=== PATIENT | female | born 1970 | race Hispanic/Latino ===

== ENCOUNTER → 2017-11-18 | Outpatient (CLI) | payer BC ==
--- NOTE | 2017-11-18 10:50 | Diagnostic Imaging Report ---
PROCEDURE:SP LUMBAR, COMPLETE MIN 4VW TECHNIQUE:AP, lateral, bilateral oblique and coned down views lumbar spine INDICATION:Lumbar spine pain COMPARISON:None. FINDINGS: 5 [id number]-[id number] lumbar vertebral bodies. Hypoplastic 12th ribs. Vertebral body height is preserved. Trace degenerative changes at L2-L3 with preservation of disc space height. Facets are patent without significant sclerosis or osteophytosis. Regional skeleton is intact. Patent sacroiliac joints. CONCLUSION: Trace degenerative disc disease not unexpected for patient age. No acute abnormality. Dictated by: Star Hassan M.D. on 11/18/2017 at 10:58 Electronically approved by: Star Hassan M.D. on 11/18/2017 at 10:58
== END ==
LOC: RAD 09:39
PROVIDERS: ATTEND Family Medicine
DX: M54.5 Low back pain (principal)
CPT/HCPCS: 72110

== ENCOUNTER → 2018-08-03 | Day surgery (SDC) | payer BC ==
[~2018-08-03] MED LIST: BISOPROLOL FUMAR5 MG PO; CYMBALTA30 MG PO; LASIX20 MG PO; LIDOCAINE HCL 2% LOCAL INJ 5 ML SDV VIAL INJ ONE; OXCARBAZEPINE150 MG PO; PROPOFOL IV EMULSION 10 MG/ML 50 ML VIAL IV ONE
--- OUTSIDE RECORDS SUMMARY | 2018-08-24 07:39 | XMS REPORT ---
Author Author [facility] Address Unknown Phone Unavailable Care Team Providers Care Antenna Design Engineer Name Role Phone ANGEL CAMEJO Unavailable Unavailable PHILIP ROSS Unavailable Unavailable Problems This patient has no known problems. Allergies, Adverse Reactions, Alerts This patient has no known allergies or adverse reactions. Medications This patient has no known medications. Results Test Description Test Time Test Comments Text Results Atomic Results Result Comments SP LUMBAR, COMPLETE MIN 4VW [place] [address] Patient Name: SAKINA BOLAND MR #: [id number] : 1970 Age/Sex: 47/F Req #: [id number] Adm Physician: Ordered by: BASHIR GLASS, ANGEL Naranjo MD Report #: [id number] Location: [facility] Room/Bed: ____ Procedure: [id number] DX/SP LUMBAR, COMPLETE MIN 4VW Exam Date: Exam Time: 1010 REPORT STATUS: Signed PROCEDURE: SP LUMBAR, COMPLETE MIN 4VW TECHNIQUE: AP, lateral, bilateral oblique and coned down views lumbar spine INDICATION: Lumbar spine pain COMPARISON: None. FINDINGS: 5 kmq-mkm-vtbpfom lumbar vertebral bodies. Hypoplastic 12th ribs. Vertebral body height is preserved. Trace degenerative changes at L2-L3 with preservation of disc space height. Facets are patent without significant sclerosis or osteophytosis. Regional skeleton is intact. Patent sacroiliac joints. CONCLUSION: Trace degenerative disc disease not unexpected for patient age. No acute abnormality. Dictated by: Stephanie Hassan M.D. on 11/18/2017 at 10:58 Electronically approved by: Stephanie Hassan M.D. on 2016 at 10:58 Dictated By: STEPHANIE HASSAN MD 1058 Transcribed By: CHRISTA on 1058 COPY TO: ANGEL CAMEJO MAMMOGRAPHY DIGITAL SCR BILAT [place] [address] Patient Name: SAKINA BOLAND MR #: [id number] : 1970 Age/Sex: 47/F Req #: [id number] Adm Physician: Ordered by: JOSE ROSS MD Report #: [id number] Location: MAMMO Room/Bed: Procedure: [id number] MG/MAMMOGRAPHY DIGITAL SCR BILAT Exam Date: Exam Time: 1420 REPORT STATUS: Signed #[id number] - MGSCRBIL #BILATERAL DIGITAL SCREENING MAMMOGRAM WITH CAD : 11/04/2017 CLINICAL: Routine screening. Comparison is made to exams dated: 11/02/2016 mammogram, 10/31/2015 mammogram and 10/09/2014 mammogram - [facility]. Current study contains 4 films. There are scattered fibroglandular elements in both breasts. Current study was also evaluated with a Computer Aided Detection (CAD) system. No significant masses, calcifications, or other findings are seen in either breast. There has been no significant interval change. IMPRESSION: NEGATIVE There is no mammographic evidence of malignancy. A 1 year screening mammogram is recommended. The patient will be notified by letter of the results. Dr. Cora Pace MD rs/brendan:11/16/2017 14:22: 55 Client Coordinator: Karis WASHINGTON(Ramiro)(M), [facility] letter sent: Compared to Prior B9 Mammogram BI-RADS: 1 Negative Dictated By: CORA PACE MD 142 Transcribed By: BRENDAN on 11/16/17 142 COPY TO : PHILIP ROSS MD
== END | disposition home or self-care (01) ==
LOC: OR 07:33
PROVIDERS: ATTEND Internal Medicine Gastroenterology
DX: Z12.11 Encounter for screening for malignant neoplasm of colon (principal); K29.50 Unspecified chronic gastritis without bleeding; K21.0 Gastro-esophageal reflux disease with esophagitis; K57.30 Diverticulosis of large intestine without perforation or abscess without bleeding; K64.8 Other hemorrhoids; K44.9 Diaphragmatic hernia without obstruction or gangrene; B96.81 Helicobacter pylori [H. pylori] as the cause of diseases classified elsewhere; G47.33 Obstructive sleep apnea (adult) (pediatric); I10 Essential (primary) hypertension; Z71.3 Dietary counseling and surveillance; E66.01 Morbid (severe) obesity due to excess calories; Z01.810 Encounter for preprocedural cardiovascular examination; Z68.42 Body mass index [BMI] 45.0-49.9, adult; Z87.891 Personal history of nicotine dependence
CPT/HCPCS: 43239; 45378; 93005; J2001

== ENCOUNTER → 2018-12-13 | Outpatient (CLI) | payer BC ==
[~2018-12-13] MED LIST changes: -LIDOCAINE HCL 2% LOCAL INJ 5 ML SDV VIAL INJ ONE; -PROPOFOL IV EMULSION 10 MG/ML 50 ML VIAL IV ONE
--- NOTE | 2018-12-14 12:24 | Diagnostic Imaging Report ---
#[id number] - MGSCRBIL #BILATERAL DIGITAL SCREENING MAMMOGRAM WITH CAD: 12/13/2018 CLINICAL: Routine screening. Comparison is made to exams dated: 11/04/2017 mammogram and 10/31/2015 mammogram - [facility]. There are scattered fibroglandular elements in both breasts. Current study was also evaluated with a Computer Aided Detection (CAD) system. No significant masses, calcifications, or other findings are seen in either breast. There has been no significant interval change. IMPRESSION: NEGATIVE There is no mammographic evidence of malignancy. A 1 year screening mammogram is recommended. The patient will be notified by letter of the results. Luis Alberto valera/gregoria:12/14/2018 11:14:55 Printer Technician: Karis WASHINGTON(R)(M), [facility] letter sent: Normal Exam Mammogram BI-RADS: 1 Negative
== END ==
LOC: MAMMO 12:41
PROVIDERS: ATTEND Obstetrics & Gynecology
DX: Z12.31 Encounter for screening mammogram for malignant neoplasm of breast (principal)
CPT/HCPCS: 77067

== ENCOUNTER 2020-05-09 13:53 | Observation (INO) | payer BC, OTHER ==
[~2020-05-09] VITALS: Ht 172.7 cm; Wt 151.0 kg
--- NOTE | 2020-05-09 14:09 | Emergency Department Note ---
History of Present Illnes History of Present Illness Chief Complaint: Chest Pain History of Present Illness This is a 50 year old female arrived to the ED with left-sided chest pa in worse on exertion, started and woke up from her sleep at 2 AM. Patient states all the chest pain is improved it is still present. Patient states her PCP told to come the emergency department. Patient's journal clerk is Dr. Green she has not had a cardiac workup done thus far.. Historian: Patient Arrival Mode: Car Onset (how long ago): hour(s) Severity: mild Onset quality: sudden Duration (how long): hour(s) Timing of current episode: intermittent Progression: worsening Context: Denies recent illness Relieving factors: none Associated symptoms: Reports chest pain; Denies denies other symptoms, Denies cough, Denies fever/chills, Denies headaches, Denies loss of appetite Past Medical/Family History Physician Review I have reviewed the patient's past medical and family history. Any updates have been documented here. Past Medical History Recent Fever: No Clinical Suspicion of Infectio: No New/Unexplained Change in Ment: No Past Medical History: Hypertension, Diabetes Other Medical History: NEUROPATHY Past Surgical History: , Hernia Repair Social History Smoking Cessation: Never Smoker Counseling Performed: No Review of Systems Review of Systems Constitutional: Reports no symptoms EENTM: Reports no symptoms Cardiovascular: Reports as per HPI, Reports chest pain; Denies palpitations, Denies syncope Respiratory: Reports no symptoms Gastrointestinal: Reports no symptoms Genitourinary: Reports no symptoms Musculoskeletal: Reports no symptoms Integumentary: Reports no symptoms Neurological: Reports no symptoms Psychological: Reports no symptoms Endocrine: Reports no symptoms Hematological/Lymphatic: Reports no symptoms Physical Exam Related Data Allergies: Coded Allergies: No Known Drug Allergies (Verified Allergy, Unknown, 07/15/10) Triage Vital Signs Vital Signs Date Time Temp Pulse Resp B/P (MAP) Pulse Ox O2 Delivery O2 Flow Rate FiO2 05/09/20 13:57 98.9 73 18 153/75 97 Vital signs reviewed: Yes Physical Exam CONSTITUTIONAL Constitutional: Present well-developed, Present morbidly obese HENT HENT: Present normocephalic, Present atraumatic, Present oropharynx clear/moist, Present nose normal HENT L/R: Present left ext ear normal, Present right ext ear normal EYES Eyes: Reports PERRL, Reports conjunctivae normal NECK Neck: Present ROM normal PULMONARY Pulmonary: Present effort normal, Present breath sounds normal CARDIOVASCULAR Cardiovascular: Present regular rhythm, Present heart sounds normal, Present capillary refill normal, Present normal rate GASTROINTESTINAL Abdominal: Present soft, Present nontender, Present bowel sounds normal GENITOURINARY Genitourinary: Present exam deferred SKIN Skin: Present warm, Present dry MUSCULOSKELETAL Musculoskeletal: Present ROM normal NEUROLOGICAL Neurological: Present alert, Present oriented x 3, Present no gross motor or sensory deficits PSYCHOLOGICAL Psychological: Present mood/affect normal, Present judgement normal Results Laboratory Lab results reviewed: Yes Imaging Imaging results reviewed: Yes Procedures 12 Lead ECG Interpretation ECG Interpretation : ECG: ECG 1 Reverse Unit Operator: Interpreted by ED physician Rhythm: sinus rhythm QRS axis: left Clinical Decision Tools HEART Score Another reason for symptoms: HEART score not applicable HEART Score: HEART Score Response (Comments) Value History Highly suspicious 2 EKG Normal 0 Age 45 - 65 1 Risk factors 3 or more risk factors OR hx of CAD 2 Troponin 1-3x normal limit Total 5 Assessment & Plan Medical Decision Making MDM 50-year-old female high risk chest pain arrived to the ED with chest pain is worse on exertion. Patient noted for serial cardiac markers cariology consulted. Dr. Green informed. Assessment & Plan Final Impression: (1) ACS (acute coronary syndrome) Depart Disposition: ADMITTED Last Vital Signs Date Time Temp Pulse Resp B/P (MAP) Pulse Ox O2 Delivery O2 Flow Rate FiO2 05/09/20 13:57 98.9 73 18 153/75 97 Home Meds Reported Medications Oxcarbazepine (OXCARBAZEPINE) 150 Mg Tablet, 150 MG PO DAILY 07/31/18 Furosemide (LASIX) 20 Mg Tablet, 10 MG PO DAILY, #30 TAB 07/31/18 Duloxetine Hcl (CYMBALTA) 30 Mg Capsule.dr, 30 MG PO DAILY, #30 CAP 07/31/18 Bisoprolol Fumarate (BISOPROLOL FUMARATE) 5 Mg Tablet, 5 MG PO DAILY 07/31/18 CORINA MCCULLOUGH DO May 09, 2020 14:09
[2020-05-09 14:33] LABS: BASOPHILS % 0.4 % (0.0-1.0); EOSINOPHILS # (AUTO) 0.2 (0.0-0.4); EOSINOPHILS % 1.9 % (0.0-6.0); HEMATOCRIT 43.7 % (34.2-44.1); LYMPHOCYTES # (AUTO) 1.9 (1.0-3.2); LYMPHOCYTES % 21.4 % (18.0-39.1); MEAN CORPUSCULAR HEMOGLOBIN 28.5 pg (28-32); MEAN CORPUSCULAR VOLUME 88.8 fL (81-99); MONOCYTES # (AUTO) 0.6 (0.2-0.8); MONOCYTES % 6.9 % (4.4-11.3); NEUTROPHILS # (AUTO) 6.3 (2.1-6.9); NEUTROPHILS % 69.2 % (38.7-80.0); PLATELET COUNT 282 x10e3/uL (140-360); RED BLOOD COUNT 4.92 x10e6/uL (3.6-5.1); RED CELL DISTRIBUTION WIDTH 12.9 % (11.7-14.4)
--- NOTE | 2020-05-09 14:47 | Diagnostic Imaging Report ---
EXAMINATION: CHEST SINGLE (PORTABLE) INDICATION: Chest pain COMPARISON: None FINDINGS: LINES/TUBES:None LUNGS:The lungs are well-inflated. No focal consolidation or pulmonary edema. PLEURA:No pleural effusion or pneumothorax. MEDIASTINUM:The cardiomediastinal silhouette appears normal in size and shape. BONES/SOFT TISSUES:No acute osseous injury. ABDOMEN:No free air under the diaphragm. IMPRESSION: No focal pneumonia or pulmonary edema. Signed by: Lai Eid MD on 05/09/2020 2:44 PM
[2020-05-09] MEDS ORDERED: ASPIRIN 81 MG CHEW TAB PO ONE (16:15)
[2020-05-09 16:22] LABS: ALANINE AMINOTRANSFERASE 40 IU/L (0-55); ALBUMIN 3.7 g/dL (3.5-5.0); ALKALINE PHOSPHATASE 132 IU/L (40-150); ANION GAP 13.9 mmol/L (8-16); BLOOD UREA NITROGEN 12 mg/dL (7-26); BUN/CREATININE RATIO 13 (6-25); CALCIUM 9.5 mg/dL (8.4-10.2); CARBON DIOXIDE 26 mmol/L (22-29); CHLORIDE 101 mmol/L (98-107); CREATINE KINASE 48 IU/L (29-168); EST GLOMERULAR FILTRATION RATE > 60 ML/MIN (60-); POTASSIUM 3.9 mmol/L (3.5-5.1); SODIUM 137 mmol/L (136-145)
[2020-05-09 17:12] LABS: GLUCOSE 145 mg/dL (74-118)
--- NOTE | 2020-05-09 17:20 | NUR ---
RECEIVED PATIENT FROM THE ER, PATIENT IS ALERT AND ORIENTED X3, VERBALIZING NEEDS, AT BED SIDE, ORIENTED TO ROOM AND USE OF CALL LIGHT AND BOOKLET. PATIENT VERBALIZED UNDERSTANDING. BED IN LOW POSITION, BREAKS IN PLACE. CALL LIGHT AND BELONGINGS WITHIN REACH WILL CONTINUE TO MONITOR.
[2020-05-09 18:10] VITALS: BP_SYST 114; BP_SYST 149; BP_DIAS 56; BP_DIAS 79
[2020-05-09] MEDS ORDERED: GLIPIZIDE5 MG PO (18:37)
[2020-05-09] MEDS ORDERED: FUROSEMIDE40 MG PO (18:55)
[2020-05-09] MEDS ORDERED: VITMAIN D PO (18:57)
[2020-05-09] MEDS ORDERED: DEXTROSE 50% SYRINGE 50 ML IV PRN (19:15)
[2020-05-09] MEDS ORDERED: ACETAMINOPHEN 325 MG TAB PO PRN (19:15)
[2020-05-09 20:00] VITALS: BP 110/64
[2020-05-09 20:54] VITALS: BP 110/64
[2020-05-09] MEDS: INSULIN REGULAR, HUMAN 100 UNIT/1 ML 3ML VIAL SQ SCH (21:11)
[2020-05-10] VITALS: BP 110/58
[2020-05-10 01:44] LABS: CREATINE KINASE 39 IU/L (29-168)
[2020-05-10 04:00] VITALS: BP 104/51
--- NOTE | 2020-05-10 06:52 | History and Physical ---
PRIMARY CARE PHYSICIAN: Dr. Sam Pineda. CHIEF COMPLAINT: Chest pain radiating to the left arm. HISTORY OF PRESENT ILLNESS: This is a 50-year-old female with past medical history of hypertension, diabetes, neuropathy, and GERD, presented to the ER with complaints of chest pain that started overnight. She reports the pain initially started before she went to bed, she took Pepcid Complete to relieve what felt like acid reflux. She went to bed and reports the pain woke her up around 2:00 a.m. She reports the pain radiated to her left upper arm and back, she describes the pain as sharp, no other associated symptoms. She denies any nausea, vomiting, fever, chills, diaphoresis, dizziness, dysuria, hematuria, change in LOC. She reports the pain continued to worsen, no alleviating or relieving factors. Currently rates pain 5/10. In the ER chest x-ray is negative for pneumonia or pulmonary edema. Initial troponins negative. Admitted for further evaluation. PAST MEDICAL HISTORY: 1. hypertention 2. diabetes 3. diabetic neuropathy 4. GERD SURGICAL HISTORY: 1. 2. Hernia repair FAMILY MEDICAL HISTORY: Mother has hypertension and father diabetes. SOCIAL HISTORY: Denies any tobacco, alcohol and illicit drug use. ALLERGIES: NONE ROS: 12 system reviewed and negative except as reported on HPI. PHYSICAL EXAM: VS: bp 153/75, pulse 70, O2 sat 100% on room air. GENERAL: No acute distress HENT: Normocephalic and atrumatic LUNGS: clear to ascultation CARDIOVASCULAR: Regular rate and rhythm. NEUROLOGY: Alert, awake and oriented x3 GI: soft and non tender. MUSCULOSKELETAL: moves all extremities. no edema. PSYCH: Calm. LABS: troponin negative, chest xray unremarkable. IMPRESSION: 1. Chest pain, rule out acute coronary syndrome. First troponin negative, chest x-ray unremarkable. We will continue to trend troponins. We will consult her marine erector, Dr. Green, echo pending. 2. Hypertension. Resume beta blockers. 3. Diabetes type 2. We will resume glipizide and SSI. 4. Gastroesophageal reflux disease. We will place on Pepcid. 5. Neuropathy likely due to diabetes. We will treat as needed. 6. Deep vein thrombosis prophylaxis. SCDs for now. PLAN: Continue trending troponins, Cardiology has been consulted, echo pending. DICTATION ENDS HERE Dictated by Cece Iraheta, ANP MD JOSH Esquivel/CELESTINO /[id number]
[2020-05-10] MEDS: INSULIN REGULAR, HUMAN 100 UNIT/1 ML 3ML VIAL SQ SCH ×2 (07:30→11:33)
[2020-05-10 07:51] VITALS: BP 96/51
[2020-05-10] MEDS ORDERED: GLIPIZIDE 5 MG TAB PO SCH (08:00)
[2020-05-10 08:34] VITALS: BP 96/51
[2020-05-10 08:38] LABS: CREATINE KINASE 39 IU/L (29-168)
[2020-05-10] MEDS ORDERED: FUROSEMIDE 40 MG TAB PO SCH (09:00)
[2020-05-10] MEDS ORDERED: OXCARBAZEPINE 300 MG TAB PO SCH (09:00)
[2020-05-10] MEDS ORDERED: BISOPROLOL FUMARATE 10 MG TAB PO SCH (09:00)
--- NOTE | 2020-05-10 10:00 | NUR ---
The transmitter tester visited and ordered EKG done jack as she is possible discharge.
--- NOTE | 2020-05-10 10:48 | Consultation ---
DATE OF CONSULTATION: 05/10/2020 Cardiology Consultation CHIEF COMPLAINT: Chest pain radiating to left shoulder and left arm. HISTORY OF PRESENT ILLNESS: The patient is a 50-year-old woman with a medical history of diabetes, hypertension, severe GERD, neuropathy, who came to the emergency room with a complaint of chest pain. The patient had onset of the chest pain the night before she came to the emergency room. The patient took Pepcid, which she normally takes for acid reflux. She went to bed and woke up about 2 in the morning with chest pain similar to with the previous episode, but this time radiating to the left shoulder and upper and left arm. The patient also describes the pain as sharp. There were no associated symptoms. She denies any dizziness, syncope, palpitations, nausea, vomiting, fever, chills, or dysuria. The patient is currently chest pain free. In the ER, she had chest x-ray that did not show any significant abnormalities. Her troponin levels have been negative so far. CK and CK-MB also negative. Echocardiogram done this morning shows a normal ventricular function, normal valve motion, no significant valvular abnormalities. PHYSICAL EXAMINATION: VITAL SIGNS: Her blood pressure is 96/51 mmHg with heart rate of 73, her pulse oximetry is 99% on room air and she is afebrile. HEAD AND NECK: Normocephalic and atraumatic head. Pupils are equal and reactive to light. Anicteric conjunctivae. NECK: No increased jugular venous pressure. LUNGS: Clear to auscultation. CARDIAC: Regular rate. Normal S1 and S2. No S3, no S4 and no murmurs heard. ABDOMEN: Obese, soft, nontender. EXTREMITIES: No leg edema. LABORATORY DATA: Show negative troponin levels. Negative CK-MB levels. Her hemoglobin is 14.0, hematocrit is 43.7, platelet count 282,000. Her chemistry has no significant abnormalities. Electrocardiogram show no acute ST changes. ASSESSMENT AND PLAN: 1. Atypical chest pain, no evidence of acute coronary artery syndrome. I would recommend a nuclear stress test for this patient given multiple risk factors. This stress test may be done as an outpatient. The patient is eager to go home because she feels her symptoms have resolved. I have no problems with her going home today. We will get an electrocardiogram prior to her discharge. 2. Hypertension. Well controlled. Continue to monitor. 3. Diabetes type 2. Resume her home medications. 4. Symptoms of gastroesophageal reflux disease. The patient may benefit from PPI. 5. Follow up after discharge with Dr. Davis. We will arrange a stress nuclear test for the patient as an outpatient. MD CATALINO Mena/CELESTINO /[id number]
[2020-05-10 11:13] VITALS: BP 114/68
[2020-05-10] MEDS ORDERED: PANTOPRAZOLE SOD 40 MG TABEC PO SCH (14:00)
[2020-05-10] MEDS ORDERED: PROTONIX40 MG/ML PO (14:05)
--- NOTE | 2020-05-10 15:29 | NUR ---
Discharge orders were received and the pt. received follow up and home care instructions. She was escorted to private car and placed into the care of her spouse.
--- NOTE | 2020-05-11 00:40 | Discharge Summary ---
PRIMARY CARE PHYSICIAN: Dr. Sam Pineda. FINAL DISCHARGE DIAGNOSES: 1. Chest pain, ruled out acute coronary syndrome. 2. Hypertension. 3. Diabetes type 2. 4. Gastritis. 5. Neuropathy due to diabetes. CONSULTANTS: Dr. Green with Cardiology. PROCEDURES: Echo. HISTORY: Per HPI. HOSPITAL COURSE: Ms. Veliz was admitted for complaints of chest pain radiating to her left upper extremity. Troponins were trended, all negative. Echocardiogram was done and Cardiology was consulted for evaluation. She is cleared for discharge from cardiac standpoint to follow up for outpatient stress test. Also recommend chest pain may be due to acid reflux. We will start the patient on Protonix and have her follow up with her PCP and sales administration specialist next week. At this time, she has no chest pain, vital signs stable, and is eager to go home. PHYSICAL EXAMINATION: VITAL SIGNS: Temperature 97.5, pulse is 57, respirations 16, blood pressure 114/68, pulse ox 98% on room air. GENERAL: No acute distress. HEENT: Normocephalic and atraumatic. LUNGS: Clear to auscultation. CARDIOVASCULAR: Regular rate and rhythm. NEUROLOGIC: Alert, awake, and oriented x3. GI: Soft and nontender. MUSCULOSKELETAL: Moves all extremities. PSYCH: Calm. DISCHARGE MEDICATIONS: Please see medication reconciliation list. FOLLOWUP: Follow up with Cardiology Dr. Green and Dr. Pineda in 1 to 2 weeks. Time spent is 32 minutes. Dictated by MICHI Foster Liban Heard MD MY/MODL /[id number] cc: Sam Pineda
== END 2020-05-10 15:33 | disposition home or self-care (01) ==
LOC: ER 13:53 → ERHOLD 16:07 → MED/SURG2 17:22
PROVIDERS: ADMIT Internal Medicine; ATTEND Internal Medicine
DX: R07.89 Other chest pain (principal); I10 Essential (primary) hypertension; E11.9 Type 2 diabetes mellitus without complications; K29.70 Gastritis, unspecified, without bleeding; E11.40 Type 2 diabetes mellitus with diabetic neuropathy, unspecified; K21.9 Gastro-esophageal reflux disease without esophagitis
CPT/HCPCS: 36415 ×2; 71045; 80053; 82550 ×2; 82553 ×2; 82948 ×2; 84484 ×2; 85025; 87635; 93005 ×2; 93306; 99284; G0378 ×2

== ENCOUNTER → 2021-06-16 | Outpatient (CLI) | payer BC ==
[~2021-06-16] MED LIST changes: +FUROSEMIDE40 MG PO; +GLIPIZIDE5 MG PO; +PROTONIX40 MG/ML PO; +VITMAIN D PO
== END ==
LOC: RAD 09:49
PROVIDERS: ATTEND Family Medicine
DX: R05 Cough (principal)
CPT/HCPCS: 71046

== ENCOUNTER → 2021-12-28 | Outpatient (CLI) | payer BC | LOC: MAMMO 11:47 | PROVIDERS: ATTEND Obstetrics & Gynecology | DX: Z12.31 Encounter for screening mammogram for malignant neoplasm of breast (principal) | CPT/HCPCS: 77067 ==

== ENCOUNTER → 2022-01-06 | Outpatient (CLI) | payer BC | LOC: DX 07:59 | PROVIDERS: ATTEND Obstetrics & Gynecology | DX: Z13.820 Encounter for screening for osteoporosis (principal) | CPT/HCPCS: 77080 ==

== ENCOUNTER → 2022-08-24 | Day surgery (SDC) | payer BC ==
[~2022-08-24] MED LIST changes: +ATORVASTATIN CA10 MG PO; +FAMOTIDINE20 MG PO; +GLUCAGON FOR INJ 1 MG VIAL ONE; +HYOSCYAMINE SULFATE 0.5 MG/ML INJ ONE; +MIDAZOLAM HCL 2 MG/2 ML VIAL ONE; +OXCARBAZEPINE300 MG PO; +POVIDONE IODINE 0.05% 0.05 % ML PO ONE; +PROPOFOL IV EMULSION 10 MG/ML 20 ML VIAL ONE; +PROTONIX40 MG PO; +SIMETHICONE 40 MG/0.6 ML BTL ONE; +TRULICITY1.5 MG/0.5 SC
[2022-08-24 15:29] VITALS: BP 126/74
[2022-08-24 16:20] LABS: WBC,FECAL (FECAL LACTOFERRIN) NEGATIVE (NEGATIVE)
== END | disposition home or self-care (01) ==
LOC: OR 11:40
PROVIDERS: ATTEND Internal Medicine Gastroenterology
DX: K21.9 Gastro-esophageal reflux disease without esophagitis (principal); D12.4 Benign neoplasm of descending colon; K31.7 Polyp of stomach and duodenum; K29.50 Unspecified chronic gastritis without bleeding; K52.9 Noninfective gastroenteritis and colitis, unspecified; K20.90 Esophagitis, unspecified without bleeding; K44.9 Diaphragmatic hernia without obstruction or gangrene; K57.30 Diverticulosis of large intestine without perforation or abscess without bleeding; K62.89 Other specified diseases of anus and rectum; K64.8 Other hemorrhoids; Z71.3 Dietary counseling and surveillance; I10 Essential (primary) hypertension; E78.5 Hyperlipidemia, unspecified; I45.10 Unspecified right bundle-branch block; E11.9 Type 2 diabetes mellitus without complications; F41.9 Anxiety disorder, unspecified; Z01.810 Encounter for preprocedural cardiovascular examination; Z79.899 Other long term (current) drug therapy; Z68.43 Body mass index [BMI] 50.0-59.9, adult
CPT/HCPCS: 36415; 43239; 45380; 45385; 82948; 83630; 83993; 87045; 87324; 87449; 93005; C9113; J2250; J2704; J1610; J1980

== ENCOUNTER → 2024-05-21 | Outpatient (REF) | payer BC ==
[~2024-05-21] MED LIST changes: -GLUCAGON FOR INJ 1 MG VIAL ONE; -HYOSCYAMINE SULFATE 0.5 MG/ML INJ ONE; -MIDAZOLAM HCL 2 MG/2 ML VIAL ONE; -POVIDONE IODINE 0.05% 0.05 % ML PO ONE; -PROPOFOL IV EMULSION 10 MG/ML 20 ML VIAL ONE; -SIMETHICONE 40 MG/0.6 ML BTL ONE
== END ==
LOC: US 07:29
PROVIDERS: ATTEND Nurse Practitioner
DX: R10.84 Generalized abdominal pain (principal); R10.11 Right upper quadrant pain; K29.60 Other gastritis without bleeding; E66.01 Morbid (severe) obesity due to excess calories
CPT/HCPCS: 76700